=== PATIENT | male | born 1945 | race Two or more races ===

== ENCOUNTER 2023-08-19 15:36 | Emergency (ER) | payer SELFPAY ==
[~2023-08-19] VITALS: Ht 165.1 cm; Wt 73.0 kg
[2023-08-19 15:51] VITALS: TEMP 98.5; O2SAT 97
[2023-08-19 16:15] VITALS: BP 141/84; PULSE 57; RESP 14
[2023-08-19 19:08] LABS: BASOPHILS % 0.4 % (0.0-2.0); EOSINOPHILS % 1.6 % (0.0-5.0); HEMOGLOBIN. 9.6 g/dL (14.0-18.0); MEAN CORPUSCULAR HEMOGLOBIN 26.7 pg (28.0-32.0); MEAN CORPUSCULAR HGB CONC 31.9 g/dL (31.0-37.0); MEAN CORPUSCULAR VOLUME 83.5 fL (80.0-94.0); MEAN PLATELET VOLUME 9.4 fl (7.4-10.4); PLATELET 159 x1000/uL (130-400); RED CELL DISTRIBUTION WIDTH 16.3 % (11.6-14.6); WHITE BLOOD COUNT 8.2 x1000/uL (4.5-11.0)
[2023-08-19] MEDS: ACETAMINOPHEN 325MG TABLET PO ONE (19:09)
[2023-08-19] MEDS: HYDRALAZINE 20MG/ML VIAL IV ONE (19:20)
[2023-08-19 19:22] LABS: ALANINE AMINOTRANSFERASE 20 IU/L (10-49); ASPARTATE AMINOTRANSFERASE 25 IU/L (<34); BILIRUBIN TOTAL 0.3 mg/dL (0.1-1.0); CALCIUM 8.5 mg/dL (8.7-10.4); CARBON DIOXIDE 26 mEq/L (21-32); CHLORIDE 112 mEq/L (98-107); CREATININE 1.7 mg/dL (0.6-1.3); GLUCOSE 91 mg/dL (70-105); POTASSIUM 4.8 mEq/L (3.5-5.1); SODIUM 142 mEq/L (136-145); TROPONIN I HIGH SENSITIVITY 24 ng/L (3.0-53); UREA NITROGEN BLOOD 30 mg/dL (9-23)
[2023-08-19] MEDS: KETOROLAC 60MG/2ML VIAL IM ONE (19:33)
[2023-08-19] MEDS ORDERED: TOPUD MT (20:34)
== END 2023-08-20 06:31 | disposition home or self-care (01) ==
LOC: ER 16:05
DX: R51.9 Headache, unspecified (principal); M54.2 Cervicalgia; R07.89 Other chest pain; I25.10 Atherosclerotic heart disease of native coronary artery without angina pectoris; I10 Essential (primary) hypertension; I25.2 Old myocardial infarction
CPT/HCPCS: 80053; 83880; 85025; 84484; 36415; 71045; 72050; 93005; 96374; 99285; J0360; J1885; Z7610 ×4